=== PATIENT | female | born 1985 | race Caucasian/White ===

== ENCOUNTER → 2020-12-19 | Emergency (ER) | payer OTHER ==
[~2020-12-19] VITALS: Ht 175.3 cm; Wt 104.3 kg
[~2020-12-19] MED LIST: ADVIL; ZYRTEC
== END | disposition home or self-care (01) ==
LOC: ER 19:18
DX: Z53.21 Procedure and treatment not carried out due to patient leaving prior to being seen by health care provider (principal)